=== PATIENT | male | born 1945 | race Caucasian/White ===

== ENCOUNTER 2018-11-19 08:00 | Inpatient (IN) | payer MEDICARE, BC ==
[~2018-11-19] VITALS: Ht 182.9 cm; Wt 87.7 kg
--- NOTE | ~2018-11-19 | HEMODYNAMI ---
PATIENT:AMY RODRIGUEZ MEDICAL RECORD: [id number] : 47 [id number] ADMISSION DATE: 11/19/18 Generatedon:11/19/201813:34 Patient name: AMY RODRIGUEZ Patient #: [id number] SSN: : 1945 Date of study: 11/19/2018 Page: Of Hemodynamic Procedure Report Patient Data Patient Demographics Procedure consent was obtained First Name: AMY Gender: Male Last Name: JENNIFER : 1945 Patient #: [id number] Age: 73 year(s) Race: Unknown Additional ID: [id number] Contact details Address: [facility] [address] State: [place] City: [place] Zip code: [address] Past Medical History Allergies: No known allergies Admission Admission Data Admission Date: 11/19/2018 Admission Time: 10:00 Height (in.): 72 BSA: 2.18 (m2) Height (cm.): 182.88 BMI: 28.48 (kg/m2) Weight (lbs.): 210 Weight (kg.): 95.25 Procedure Procedure Types Cath Procedure Peripheral Cath Diagnostic Procedure Mobile Homes Repairer Peripheral Procedures Fistula Fistulagram Angio AV Procedure Description Procedure Date Procedure Date: 11/19/2018 Procedure Start Time: 10:33 Procedure Staff Name Function Shakeel Mckay MD Performing Physician Katelyn Langford RT Pack Press Operator Naye Gustafson RN Nurse Yuan Jacobsen RT Scrub Procedure Data Cath Procedure Fluoroscopy Diagnostic fluoroscopy Total fluoroscopy Time: 25 time: 25 min min Diagnostic fluoroscopy Total fluoroscopy dose: 248 dose: 248 mGy mGy Contrast Material Contrast Material Type Amount (ml) Isovue 300 180 Procedure Medications Medication Administration Route Dosage Versed I.V. 2 mg Fentanyl I.V. 50 mcg Oxygen etCO2 Nasal cannula 4 l/min Lidocaine 1% added to field 20 Heparin Flush Bag added to field 2 bags (1000units/500ml NS) Heparin Bolus I.V. 5000 units unlisted medication added to field 10 mg Fentanyl I.V. 50 mcg Heparin Bolus I.V. 2000 units Versed I.V. 2 mg Fentanyl I.V. 50 mcg Heparin Bolus I.V. 2000 units Fentanyl I.V. 50 mcg Hemodynamics Rest BSA: 2.18 (m2) O2 Consumption: Estimated: 242.07 (ml/min) O2 Consumption indexed : Estimated:111.04 (ml/min/m) Heart Rate: 58 (bpm) Snapshots Pre Cath Intra NCS Post Cath Vital Signs Time Heart Resp SPO2 etCO2 NIBP (mmHg) Rhythm Pain Sedation Rate (ipm) (%) (mmHg) Status Level (bpm) 10:08:21 58 8 100 38.8 158/79(100) SB 0 (11) 10(A) , No pain 10:12:47 56 11 100 35 157/81(103) SB 0 (11) 10(A) , No pain 10:17:09 56 11 99 35.8 150/78(95) SB 0 (11) 10(A) , No pain 10:22:08 57 10 98 37.3 Measuring SB 0 (11) 10(A) , No pain 10:22:18 55 10 98 37.3 153/75(109) SB 0 (11) 10(A) , No pain 10:26:34 57 13 100 38 152/83(104) SB 0 (11) 10(A) , No pain 10:30:58 58 11 100 35.8 159/80(101) SB 0 (11) 10(A) , No pain 10:35:21 57 7 98 18.6 131/75(95) SB 0 (11) 8(A) , No pain 10:39:39 57 10 98 43.3 145/77(95) SB 0 (11) 8(A) , No pain 10:44:01 58 10 98 42.5 139/71(99) SB 0 (11) 8(A) , No pain 10:48:25 60 12 100 38 132/74(102) NSR 0 (11) 8(A) , No pain 10:52:43 64 11 100 23.8 137/76(109) NSR 0 (11) 8(A) , No pain 10:57:01 58 10 100 0 132/74(105) SB 0 (11) 8(A) , No pain 11:01:21 58 11 100 39.5 131/75(103) SB 0 (11) 8(A) , No pain 11:05:42 58 10 100 41 135/71(115) SB 0 (11) 8(A) , No pain 11:09:58 63 11 100 34.3 135/79(99) NSR 0 (11) 8(A) , No pain 11:14:16 58 10 100 39.5 143/76(101) SB 0 (11) 8(A) , No pain 11:18:40 57 10 100 41.8 142/75(106) SB 0 (11) 8(A) , No pain 11:23:02 57 10 99 29.1 134/73(105) SB 0 (11) 8(A) , No pain 11:27:16 59 10 99 31.3 143/82(111) SB 0 (11) 8(A) , No pain 11:31:36 57 10 100 39.5 136/71(105) SB 0 (11) 8(A) , No pain 11:35:54 54 11 100 19.4 131/73(98) SB 0 (11) 8(A) , No pain 11:40:11 55 13 100 17.9 144/77(104) SB 0 (11) 8(A) , No pain 11:44:29 58 13 100 29.8 146/78(108) SB 0 (11) 8(A) , No pain 11:48:47 57 11 99 37.2 144/80(100) SB 0 (11) 8(A) , No pain 11:53:09 55 9 99 36.5 151/77(95) SB 0 (11) 8(A) , No pain 11:57:39 60 10 99 38 142/56(67) NSR 0 (11) 8(A) , No pain 12:02:34 59 9 100 0 147/82(115) SB 0 (11) 8(A) , No pain 12:07:00 57 10 100 0 151/76(92) SB 0 (11) 8(A) , No pain 12:11:27 56 10 100 15.6 140/77(98) SB 0 (11) 8(A) , No pain 12:15:51 57 10 100 41 135/75(99) SB 0 (11) 8(A) , No pain 12:20:09 56 13 100 41 135/73(103) SB 0 (11) 8(A) , No pain 12:24:27 56 11 100 35.8 142/80(98) SB 0 (11) 8(A) , No pain 12:28:53 54 15 100 35 137/78(113) SB 0 (11) 8(A) , No pain 12:33:17 55 9 100 38 137/78(96) SB 0 (11) 8(A) , No pain 12:37:46 55 11 100 35 148/73(100) SB 0 (11) 8(A) , No pain 12:42:10 54 12 100 35.8 145/75(92) SB 0 (11) 8(A) , No pain 12:46:36 55 15 100 26.1 142/76(95) SB 0 (11) 8(A) , No pain 12:51:05 56 15 100 0 146/77(90) SB 0 (11) 8(A) , No pain 12:55:33 54 12 99 39.5 148/77(100) SB 0 (11) 8(A) , No pain 12:59:59 55 13 99 35.8 153/77(100) SB 0 (11) 8(A) , No pain 13:04:24 55 10 99 15.6 164/82(107) SB 0 (11) 8(A) , No pain 13:08:46 55 9 97 26.1 146/81(98) SB 0 (11) 8(A) , No pain 13:13:45 58 17 98 43.3 Measuring SB 0 (11) 8(A) , No pain 13:14:18 58 14 98 37.3 153/81(101) SB 0 (11) 8(A) , No pain 13:18:44 58 14 100 41 150/84(102) SB 0 (11) 8(A) , No pain 13:23:43 56 9 0 Measuring SB 0 (11) 8(A) , No pain 13:24:18 69 11 0 165/78(96) SB 0 (11) 8(A) , No pain 13:28:46 56 12 0 177/88(111) SB 0 (11) 8(A) , No pain 13:33:25 55 11 0 155/81(133) SB 0 (11) 8(A) , No pain Medications Time Medication Route Dose Verified Delivered Reason Notes Effectiveness by by 10:33:57 Versed I.V. 2 mg Shakeel Armasine for sedation Mostly Sj Mckay RN sleeping @ MD 10:37:05 10:34:07 Fentanyl I.V. 50 Shakeel Naye for sedation Mostly mcg Sj Mckay RN sleeping @ MD 10:37:09 10:34:22 Oxygen etCO2 4 Shakeel Naye for sedation Nasal l/min Sj Mckay RN cannula 10:36:10 Lidocaine 1% added 20ml Shakeel Yancey used for to vial Sj Mckay RN procedure field AVILES 10:36:24 Heparin Flush added 2 Shakeel Shakeel used for Bag to bags Woody Mckay MD procedure (1000units/500ml field AVILES NS) 10:43:33 Heparin Bolus I.V. 5000 Shakeel Yancey for units Sj Mckay RN anticoagulation 10:54:02 activase added 10 mg Shakeel Beckford for to Woody Mckay MD antiplatelet field AVILES therapy 11:42:51 Fentanyl I.V. 50 Shakeel Naye for sedation Mostly mcg Sj Mckay RN sleeping @ MD 11:55:50 11:50:59 Heparin Bolus I.V. 2000 Shakeel Armasine for units Sj Mckay RN anticoagulation 11:52:17 Versed I.V. 2 mg Shakeel Naye for sedation Mostly Sj Mckay RN sleeping @ MD 11:55:54 12:40:10 Fentanyl I.V. 50 Shakeel Naye for sedation Mostly mcg Sj Mckay RN sleeping @ MD 12:51:22 13:06:28 Heparin Bolus I.V. 2000 Shakeel Armasine for units Sj Mckay RN anticoagulation 13:06:40 Fentanyl I.V. 50 Shakeel Naye for sedation mcg Sj Mkcay RN, MD Procedure Log Time Note 9:45:17 Patient Height : 72 inches 9:45:21 Patient Weight : 210 lbs 9:45:46 Use device set IR Diagnostic 9:50:30 Time tracking: Regular hours (M-F 7:00 - 5:00) 10:06:46 Plan of Care:Hemodynamics will remain stable., Cardiac rhythm will remain stable., Comfort level will be maintained., Respiratory function will remain adequate., Patient/ family verbilizes understanding of procedure., Procedure tolerated without complication., Recovers from procedure without complications.. 10:06:53 Patient received from Outpatients to IR Alert and oriented. Tansferred to table in Supine position. 10:06:55 Correct patient and procedure confirmed by team. 10:06:57 Signed procedure consent form obtained from patient. 10:06:59 ECG and BP/O2 sat monitors applied to patient. 10:07:00 Vital chart was started 10:07:01 Baseline sample Acquired. 10:07:02 Full Disclosure recording started 10:07:03 - 10:07:10 H&P Date Dictated: 11/19/2018 Within 30 days and on chart.. 10:07:13 Pre-procedure instructions explained to patient. 10:07:14 Pre-op teaching completed and patient verbalized understanding. 10:07:20 Family in patients room. 10:07:23 Patient NPO since Midnight. 10:07:32 Patient allergic to No known allergies 10:07:35 Is the patient allergic to Iodine/contrast media? No. 10:07:39 Is patient on blood thinner?No 10:07:46 Patient diabetic? Yes. 10:07:49 If diabetic: On Metformin? No 10:07:51 - 10:07:53 ----Pre-sedation anethsthesia assessment.---- 10:07:57 Previous problem with sedation/anesthesia? No ? 10:07:59 Snore? Yes 10:08:04 Sleep apnea? No 10:08:07 Deviated septum? No 10:08:09 Opens mouth fully? Yes 10:08:11 Sticks out tongue? Yes 10:08:20 Airway obstruction? No ? 10:08:30 Dentures? No ? 10:08:33 - 10:08:42 IV patent on arrival in right hand with D5/.45%NaCl at KVO. 10:08:49 Left Arm area was prepped with chlora-prep and draped in sterile fashio n 10:08:55 - 10:08:59 Tegaderm 4 x 4 (1626W) opened to sterile field. 10:09:00 Sterile Angiographic Pack opened to sterile field. 10:09:01 Bag Decanter (2002S) opened to sterile field. 10:09:37 DOC .035 wire (F63884) opened to sterile field. 10:09:38 Micropuncture VSI 4FR kit opened to sterile field. 10:09:39 St Ilir 6FR 5cm sheath opened to sterile field. 10:09:39 St Ilir 6FR 5cm sheath opened to sterile field. 10:22:42 GLIDE CATHETER 5FR ANGLED 65cm (CG507) opened to sterile field. 10:29:38 Physician arrived 10:32:49 --------ALL STOP TIME OUT------ 10:32:50 Final Timeout: patient, procedure, and site verified with staff and physician. All members of the team are in agreement. 10:33:08 Procedure started. 10:33:14 Local anesthetic to left arm with Lidocaine 1% by Shakeel Mckay MD.INITIAL ACCESS ONLY 10:33:17 Venous access obtained using ultrasound guidance. 10:33:57 Versed 2 mg I.V. was administered by Naye Gustafson RN; for sedation; 10:34:07 Fentanyl 50 mcg I.V. was administered by Naye Sj RN; for sedation; 10:34:22 Oxygen 4 l/min etCO2 Nasal cannula was administered by Naye Gustafson RN; for sedation; 10:36:10 Lidocaine 1% 20ml vial added to field was administered by Naye Gustafson RN; used for procedure; 10:36:24 Heparin Flush Bag (1000units/500ml NS) 2 bags added to field was administered by Shakeel Mckay MD; used for procedure; 10:37:05 Effectiveness of Versed delivered @ 10:33:57 is: Mostly sleeping 10:37:09 Effectiveness of Fentanyl delivered @ 10:34:07 is: Mostly sleeping 10:40:18 TORQUE DEVICE PLASTIC .038 ( TD01) opened to sterile field. 10:43:28 GLIDE WIRE ANGLE 180cm (NL2416) opened to sterile field. 10:43:33 Heparin Bolus 5000 units I.V. was administered by Naye Gustafson RN; for anticoagulation; 10:43:39 INFUSION CATHETER 30cm [facility] ([id number]) opened to sterile field . 10:43:49 MIR 260 wire ([id number]) opened to sterile field. 10:43:59 INFLATOR BasixTOUCH (WJ9317) opened to sterile field. 10:44:43 Inflate balloon Inflation number: 1 A Evercross 6 x 8 x 135 Balloon ([id number]) was prepped and advanced across the Undefined1, then inflated. 10:54:02 activase 10 mg added to field was administered by Shakeel Mckay MD; for antiplatelet therapy; 11:42:51 Fentanyl 50 mcg I.V. was administered by Naye Gustafson RN; for sedation; 11:50:59 Heparin Bolus 2000 units I.V. was administered by Naye Gustafson RN; for anticoagulation; 11:52:17 Versed 2 mg I.V. was administered by Naye Gustafson RN; for sedation; 11:55:37 Inflate balloon Inflation number: 2 A Evercross 8 x 6 x 135 Balloon ([id number]) was prepped and advanced across the Undefined1, then inflated. 11:55:50 Effectiveness of Fentanyl delivered @ 11:42:51 is: Mostly sleeping 11:55:54 Effectiveness of Versed delivered @ 11:52:17 is: Mostly sleeping 12:03:28 Inflate balloon Inflation number: 3 A Evercross 6 x 8 x 135 Balloon ([id number]) was prepped and advanced across the Undefined1, then inflated. 12:18:42 María 5Fr OTW embolectomy catheter opened to sterile field. 12:28:46 Inflate balloon Inflation number: 4 A Evercross 10 x 40 x 135 Balloon ([id number])) was prepped and advanced across the Undefined1, then inflated. 12:40:10 Fentanyl 50 mcg I.V. was administered by Naye Gustafson RN; for sedation; 12:42:38 Inflate balloon Inflation number: 5 A Evercross 10 x 40 x 135 Balloon ([id number]) was prepped and advanced across the Undefined1, then inflated. 12:51:22 Effectiveness of Fentanyl delivered @ 12:40:10 is: Mostly sleeping 12:51:42 EVERFLEX 8 x 60 Stent ([id number]) was deployed across Undefined1 . 13:03:54 St Ilir 7FR sheath opened to sterile field. 13:06:28 Heparin Bolus 2000 units I.V. was administered by Naye Gustafson RN; for anticoagulation; 13:06:40 Fentanyl 50 mcg I.V. was administered by Naye Gustafson RN; for sedation; 13:24:41 Procedure ended.(Physican Out) 13:24:54 Fluoroscopy time 25.00 minutes. 13:24:59 Fluoroscopy dose: 248 mGy 13:24:59 Flurop Dose total: 248 13:25:05 Contrast amount:Isovue 300 180ml. 13:25:07 Procedure and supply charges have been captured, reviewed, submitted an d are correct. 13:27:20 Report given to Outpatients. 13:34:25 Vital chart was stopped Intervention Summary Intervention Notes Time ActionType Lesion and Equipment Used Action# Pressure Duration Attributes 10:44:43 Inflate Undefined1 Evercross 6 x 8 1 0 00:00 balloon x 135 Balloon ([id number]) 11:55:37 Inflate Undefined1 Evercross 8 x 6 2 0 00:00 balloon x 135 Balloon ([id number]) 12:03:28 Inflate Undefined1 Evercross 6 x 8 3 0 00:00 balloon x 135 Balloon ([id number]) 12:28:46 Inflate Undefined1 Evercross 10 x 4 0 00:00 balloon 40 x 135 Balloon ([id number]) 12:42:38 Inflate Undefined1 Evercross 10 x 5 0 00:00 balloon 40 x 135 Balloon ([id number]) 12:51:42 Deploy self Undefined1 EVERFLEX 8 x 60 1 expanding Stent stent ([id number]) Device Usage Item Name Manufacture Quantity Catalog Number [facility] Lot# / Charge Number Stock Stock Serial# Code Tegaderm 4 x 4 3M 1 1626W [id number] 557702 843073 5 (1626W) Sterile Cardinal 1 [id number] 521034 966540 5 Angiographic Health Pack Bag Decanter Microtek 1 668182 65126 120277 5 () Faculte Inc. DOC .035 wire Cook Medical 1 M38088 603032 342536 5 (P15000) Micropuncture VSI VASCULAR 1 7266V 430000 707242 5 VSI 4FR kit SOLUTIONS [address] Ilir 6FR 5[address] St Ilir 2 966555 847138 563379 5 [id number] sheath [id number] GLIDE CATHETER Terumo 1 CG507 416111 164309 5 5FR ANGLED 65cm (CG507) TORQUE DEVICE [place]ille 1 TD01 326958 043063 290734 5 PLASTIC .038 ( Scientific TD01) GLIDE WIRE Terumo 1 YH4290 613073 146465 922233 5 ANGLE 180cm (OQ6968) INFUSION Medtronic 1 48015-76 636379 557823 5 CATHETER 30cm Cuate-Tammy (3228734) MIR 260 wire Cook Medical 1 O77829 173762 12268 770636 5 4891704 (H76664) INFLATOR Merit 1 OK9737 993482 357821 301565 5 FanChatter Medical (PB2382) Evercross 6 x 8 Medtronic 2 [id number] 633590 264268 802943 5 [id number] x 135 Balloon [id number] ([id number]) Evercross 8 x 6 Medtronic 1 [id number] 251578 690393 276142 5 [id number] x 135 Balloon ([id number]) María 5Fr OTW Jaimes 1 [id number] 006624 906622 435308 5 embolectomy Lifesciences catheter Evercross 10 x Medtronic 2 [id number] 849994 576150 383739 5 [id number] 40 x 135 [id number] Balloon ([id number]) EVERFLEX 8 x 60 Medtronic 1 [id number] 853516 945636 365683 5 [id number] Stent [id number] ([id number]) St Ilir 7FR St Ilir 1 624516 929286 884276 5 [id number] sheath Signature Audit [place] Stage Time Signature Unsigned Intra-Procedure 11/19/2018 Katelyn Langford 1:34:21 PM RT(R) [place] [id number] [place] [id number]
[2018-11-19 07:47] LABS: BASOPHILS 0.2 % (0-2); EOSINOPHILS 0.5 % (0-7); HEMATOCRIT 32.1 % (42.0-54.0); HEMOGLOBIN 10.7 g/dL (13.5-17.5); IMMATURE GRANULOCYTES 0.5 % (0-5); LYMPHOCYTES 32.1 % (15-50); MCH 32.1 pg (26.0-34.0); MCHC 33.3 g/dL (31.0-37.0); MCV 96.4 fL (80.0-100.0); MEAN PLATELET VOLUME 9.1 fL (7.4-10.4); MONOCYTES 6.6 % (2-11); NEUTROPHILS 60.1 % (40-80); PLATELET COUNT 117 10x3/uL (130-400); RBC 3.33 10x6/uL (4.20-6.10); RDW 14.3 % (11.5-14.5); WBC 6.4 10x3/uL (4.8-10.8)
[2018-11-19 07:52] LABS: ANION GAP 16.1 mmol/L (8-16); CALCIUM 8.4 mg/dL (8.5-10.1); CARBON DIOXIDE 25.5 mmol/L (21.0-32.0); CREATININE - SERUM 6.6 mg/dL (0.6-1.3); POTASSIUM - SERUM 4.6 mmol/L (3.5-5.1)
[2018-11-19] MEDS ORDERED: FLOMAX0.4 MG PO (08:14)
[2018-11-19] MEDS ORDERED: COREG 3.1253.125 MG PO (08:14)
[2018-11-19] MEDS ORDERED: PROZAC40 MG PO (08:15)
[2018-11-19] MEDS ORDERED: LANTUS SOLOSTAR SQ (08:17)
[2018-11-19] MEDS ORDERED: ZOCOR20 MG PO (08:18)
[2018-11-19] MEDS ORDERED: ROPINIROLE HCL2 MG PO (08:18)
[2018-11-19] MEDS ORDERED: PROTONIX40 MG PO (08:19)
[2018-11-19] MEDS ORDERED: DEPAKENE250 MG PO (08:19)
[2018-11-19] MEDS ORDERED: SYNTHROID50 MCG PO (08:19)
[2018-11-19] MEDS ORDERED: FERRIC CITRATE210 MG PO (08:20)
[2018-11-19] MEDS ORDERED: HUMALOG 30100 UNITS/ SC (08:22)
[2018-11-19 08:30] LABS: APTT 32.9 SECONDS (22.8-39.4); BILIRUBIN - TOTAL 0.42 mg/dL (0.2-1.3); INR 1.07 (0.85-1.17); PROTEIN - SERUM 6.9 g/dL (6.4-8.2); PROTIME 13.4 SECONDS (11.6-15.0)
[2018-11-19 08:31] VITALS: BMI 28.5
--- NOTE | 2018-11-19 14:00 | NUR ---
REC'D FROM SPECIALS. FAMILY AT BEDSIDE. ASSISTED TO BATHROOM AND VOIDED WITHOUT DIFFICULTY. LEFT AVF OOZING BLOOD. DAVE REDRESSED SITE AND APPLIED COBAN. PT WILL BE TRANSFERRED TO [facility] ROOM 2126.
--- NOTE | 2018-11-19 14:33 | NUR ---
REPORT CALLED TO Shiva DAVIDSON RN. TRANSFERRING TO ROOM 2127 VIA STRETCHER. FAMILY AT BEDSIDE.
--- NOTE | 2018-11-19 14:56 | NUR ---
1435-RECEIVED REPORT FROM VAHE IN OUTPATIENT.
--- NOTE | 2018-11-19 15:16 | NUR ---
RECEIVED TO ROOM FROM IR. DING DRESSING REMOVED PER DAVE HOUESR. 2 SEPERATE SURGICAL DRESSINGS SEEN WITH OLD BLODDY DRAINAGE. RIGHT FA SEEN WITH PIV. AT BEDSIDE. HELD NPO UNTIL FURTHER ORDERS.
--- NOTE | 2018-11-19 15:22 | NUR ---
I CALLED MEHDI AQUINO APN FOR FURTHER ORDERS. SHE STATES THAT DR BURGESS WAS CONSULTED, UNSURE IF HE WAS CALLED. PAGE INTO HIM. AWAITING CALL BACK.
[2018-11-19 15:27] VITALS: BP 148/74; BMI 28.5
--- NOTE | 2018-11-19 16:00 | NUR ---
PPOC GLUCOSE IS 60, STILL NPO AT THIS TIME. ONE CONTAINER OF APPLE JUICE WITH ONE PACKET OF REAL SUGAR GIVEN FOR COVERAGE. STILL AWAITING CALL BACK.
[2018-11-19 16:43] VITALS: BP 143/73
--- NOTE | 2018-11-19 17:09 | NUR ---
STILL NPO AWAITING DR BURGESS TO PLACED TRIALYSIS AT BEDSIDE. PERMITS ARE SIGNED.
--- NOTE | 2018-11-19 18:31 | NUR ---
1800-DR BURGESS HERE FOR TRIALYSIS PLACEMENT.
--- NOTE | 2018-11-19 18:39 | NUR ---
SPOKE WITH CHELSEA AQUINO APN FOR PAIN MEDICATIONS.
--- NOTE | 2018-11-19 19:30 | NUR ---
RESUMING PATIENT CARE. PATIENT IS ALERT AND ORIENTED, RESTING COMFORTABLY IN BED. RESPIRATIONS ARE EVEN AND UNLABORED. NO S/S OF DISTRESS. NO C/O PAIN. CALL LIGHT WITHIN REACH. WILL CPOC.
[2018-11-19 20:00] VITALS: BP 169/86
[2018-11-20] VITALS: BP 152/74
[2018-11-20 04:00] VITALS: BP 150/71
[2018-11-20 06:07] LABS: BASOPHILS 0.2 % (0-2); EOSINOPHILS 1.3 % (0-7); HEMATOCRIT 29.3 % (42.0-54.0); HEMOGLOBIN 9.6 g/dL (13.5-17.5); IMMATURE GRANULOCYTES 0.2 % (0-5); MCH 31.9 pg (26.0-34.0); MCHC 32.8 g/dL (31.0-37.0); MCV 97.3 fL (80.0-100.0); MEAN PLATELET VOLUME 9.5 fL (7.4-10.4); MONOCYTES 11.6 % (2-11); NEUTROPHILS 62.7 % (40-80); PLATELET COUNT 112 10x3/uL (130-400); RBC 3.01 10x6/uL (4.20-6.10); RDW 14.2 % (11.5-14.5); WBC 5.4 10x3/uL (4.8-10.8)
[2018-11-20 06:33] LABS: ANION GAP 16.4 mmol/L (8-16); CALCIUM 8.1 mg/dL (8.5-10.1); CARBON DIOXIDE 23.8 mmol/L (21.0-32.0); CREATININE - SERUM 6.8 mg/dL (0.6-1.3); POTASSIUM - SERUM 5.2 mmol/L (3.5-5.1)
[2018-11-20 07:00] VITALS: BP 144/72
--- NOTE | 2018-11-20 07:15 | NUR ---
REPORT RECIEVED FROM MORTAR MAKER. PATIENT LAYING IN BED ON BACK AWAKE AND ALERT. AT BEDSIDE. PATIENT DENIES ANY NEEDS OR PAIN. WILL CONTINUE WITH PLAN OF CARE.
[2018-11-20 10:57] VITALS: Ht 182.9 cm; Wt 87.7 kg
[2018-11-20 15:00] VITALS: BP 127/66
--- NOTE | 2018-11-20 20:00 | NUR ---
INITIAL ROUNDS AND ASSESSMENT COMPLETED. PT HAS BEEN AMBULATORY IN HALLWAY. VOICING NO PAIN OR DISCOMFORT. RIGHT JUGULAR TRIALYSIS WITH DRESSING C/D/I. NONLABORD RESPIRATIONS ON ROOM AIR. AT BEDSIDE. MONITOR AND CPOC.
[2018-11-20 20:25] VITALS: BP 114/75
[2018-11-21 00:30] VITALS: BP 120/56
--- NOTE | 2018-11-21 02:33 | NUR ---
MEDICATED WITH ULTRAM FOR NECK PAIN. AT BEDSIDE.
[2018-11-21 04:45] VITALS: BP 143/74
--- NOTE | 2018-11-21 07:15 | NUR ---
REPORT RECIEVED AND MORNING ROUNDING COMPLETE. PT LAYING IN BED EYES CLOSED. BREATHING EVEN AND UNLABORED. AT BEDSIDE. CALL LIGHT WITHIN REACH AND BED IN LOWEST POSITION.
[2018-11-21 08:25] VITALS: BP 139/92
--- NOTE | 2018-11-21 09:58 | NUR ---
UP IN CHAIR WITH CALL LIGHT IN REACH. AT BS. WILL MONITOR NEEDS.
[2018-11-21 11:38] VITALS: BP 119/66
[2018-11-21 16:28] VITALS: BP 126/74
--- NOTE | 2018-11-21 19:38 | NUR ---
PT IS RESTING IN BED WITH EYES OPEN. ALERT AND ORIENTED X 3. DENIES ACUTE DISCOMFORT AT THIS TIME. RIGHT IJ AND RIGHT FA SL NOTED. LEFT ARM FISTULA IS CLOTTED. SR'S ARE UP X 3 IN BED. CALL LIGHT AND BEDSIDE TABLE ARE IN EASY REACH.
[2018-11-21 21:20] VITALS: BP 132/78
--- NOTE | 2018-11-21 21:47 | NUR ---
PT RESTING IN BED WITH EYES OPEN. SNORING SOFTLY.
--- NOTE | 2018-11-22 00:22 | NUR ---
PT RESTING IN BED WITH EYES CLOSED.
[2018-11-22 00:57] VITALS: BP 150/60
--- NOTE | 2018-11-22 03:15 | NUR ---
RESTING IN BED WITH NO DISTRESS. RESPS EVEN/NONLABORED. CALL LIGHT IN REACH. MONITOR AND CPOC.
[2018-11-22 05:53] VITALS: BP 181/79
--- NOTE | 2018-11-22 06:12 | NUR ---
PT RESTING IN BED WITH EYES OPEN. ANXIOUS TO GO TO SURGERY TODAY. NO NEEDS VOICED.
--- NOTE | 2018-11-22 07:35 | NUR ---
ASSESSMENT COMPLETEDALERT AND ORIENTED. RPT HAS A RIGHT IJ AND A RIGHT FA SL. LEFT AVF CLOTTED. NPO FOR SURGERY. UP AB RAMY. SR UP WITH CALL LIGHT IN REACH
[2018-11-22 08:41] VITALS: BP 154/84
[2018-11-22 11:18] LABS: BASOPHILS 0.4 % (0-2); EOSINOPHILS 2.2 % (0-7); HEMATOCRIT 29.1 % (42.0-54.0); HEMOGLOBIN 9.7 g/dL (13.5-17.5); IMMATURE GRANULOCYTES 0.7 % (0-5); MCH 31.8 pg (26.0-34.0); MCHC 33.3 g/dL (31.0-37.0); MCV 95.4 fL (80.0-100.0); MEAN PLATELET VOLUME 9.4 fL (7.4-10.4); MONOCYTES 11.1 % (2-11); NEUTROPHILS 50.6 % (40-80); PLATELET COUNT 103 10x3/uL (130-400); RBC 3.05 10x6/uL (4.20-6.10); RDW 14.1 % (11.5-14.5); WBC 5.5 10x3/uL (4.8-10.8)
--- NOTE | 2018-11-22 11:24 | NUR ---
RESTING QUIETLY NAD NOTED
[2018-11-22 11:26] LABS: ANION GAP 15.5 mmol/L (8-16); CALCIUM 8.2 mg/dL (8.5-10.1); CARBON DIOXIDE 26.1 mmol/L (21.0-32.0); CREATININE - SERUM 6.6 mg/dL (0.6-1.3); POTASSIUM - SERUM 4.6 mmol/L (3.5-5.1)
--- NOTE | 2018-11-22 18:33 | NUR ---
BACK FROM SURGERY. ALERT AND ORIENTED. V/S STABLE. HEMISPLIT TO RIGHT CHEST WITH SOME BLEEDING. PRESSURE DRSG TO AREA. NO NEEDS VOICED. WILL MONITOR
--- NOTE | 2018-11-22 19:57 | NUR ---
RESUMED CARE OF PT, LYING IN BED RESPIRATIONS EVEN AND UNLABORED ON ROOM AIR. RIGHT CHEST HEMOSPLIT OOZING, REDRESSED DRESSING, LAYING SUPINE AND ICE PACK APPLIED. AT BEDSIDE, CALL LIGHT IN REACH. WILL CONTINUE TO MONITOR. SEE NURSE ASSESSMENT.
[2018-11-22 20:56] VITALS: BP 165/73
--- NOTE | 2018-11-22 23:21 | NUR ---
UP TO TOILET, HEMOSPLIT STILL OOZING. PRESSURE DRESSING APPLIED, SANDBAG PLACED TO RIGHT CHEST.
--- NOTE | 2018-11-22 23:26 | NUR ---
VETERINARY X RAY OPERATOR AT BEDSIDE TO OBTAIN VITALS, CALL LIGHT IN REACH. WILL CONTINUE WITH PLAN OF CARE.
[2018-11-23 02:02] VITALS: BP 156/72
[2018-11-23 06:04] LABS: BASOPHILS 0.4 % (0-2); EOSINOPHILS 2.2 % (0-7); HEMATOCRIT 27.2 % (42.0-54.0); IMMATURE GRANULOCYTES 0.5 % (0-5); MCH 31.8 pg (26.0-34.0); MCHC 33.1 g/dL (31.0-37.0); MCV 96.1 fL (80.0-100.0); MEAN PLATELET VOLUME 9.3 fL (7.4-10.4); MONOCYTES 11.3 % (2-11); NEUTROPHILS 61.6 % (40-80); PLATELET COUNT 88 10x3/uL (130-400); RBC 2.83 10x6/uL (4.20-6.10); RDW 14.2 % (11.5-14.5); WBC 5.5 10x3/uL (4.8-10.8)
[2018-11-23 06:09] VITALS: BP 141/70
[2018-11-23 06:32] LABS: CALCIUM 7.5 mg/dL (8.5-10.1); CARBON DIOXIDE 23.1 mmol/L (21.0-32.0); CREATININE - SERUM 7.2 mg/dL (0.6-1.3); POTASSIUM - SERUM 5.1 mmol/L (3.5-5.1)
--- NOTE | 2018-11-23 07:00 | NUR ---
RECEIVED REPORT. ASSUMED CARE OF PATIENT. RESTING IN BED WITH EYES CLOSED. EASILY AROUSED. PATIENT SPOUSE AT BEDSIDE. PATIENT TO RECIEVE DIALYSIS TODAY. PRESSURE DRESSING NOTED TO RIGHT CHEST DUE TO BLEEDING FROM NEW HEMOSPLIT PLACEMENT. NOC NURSE REPORTED SAND BAG WAS REMOVED AT 0400. NO ACTIVE SIGNS OF BLEEDING AT THIS TIME. PRESSURE DRESSING REMAINS INTACT. CALL LIGHT WITHIN REACH.
[2018-11-23 07:25] LABS: PLATELET ESTIMATE DECREASED
[2018-11-23 07:26] LABS: ANISOCYTOSIS OCC
--- NOTE | 2018-11-23 08:00 | NUR ---
RECEIVED CALL FROM KAREN CONNER APN AND RECIEVED ORDER TO HOLD PLAVIX THIS AM DUE TO PATIENT HAD BLEEDING FROM RIGHT CHEST HEMOSPLIT AND SHE WILL CONTACT DIALYSIS AND LET THEM KNOW NOT TO USE HEPARIN ON PATIENT TODAY.
--- NOTE | 2018-11-23 08:08 | NUR ---
PATIENT SITTING UP TO CHAIR AT BEDSIDE REQUESTING PRESSURE DRESSING REMOVED. EXPLAINED THE NEED FOR THE DRESSING AND PATIENT AND HIS AGREE TO KEEP PRESSURE DRESSING ON AT THIS TIME. NO DISTRESS.
[2018-11-23 08:24] VITALS: BP 166/93
--- NOTE | 2018-11-23 08:36 | NUR ---
DOPPLER USED TO CHECK BRUIT ON LEFT ARM FISTUAL UNABLE TO AUSCULATE WITH STETHOSCOPE. GOOD BRUIT WITH DOPPLER.
--- NOTE | 2018-11-23 09:21 | NUR ---
FSBS 138. 16 UNITS LANTUS ADMINISTERED ORDERED. NO DISTRESS.
[2018-11-23 11:09] VITALS: BP 154/76
--- NOTE | 2018-11-23 11:37 | NUR ---
FSBS 95. NO INSULIN PER SLIDING SCALE.
--- NOTE | 2018-11-23 12:28 | NUR ---
PATIENT RESTING IN BED. PATIENT AT BEDSIDE. AWAITING DIALYSIS TO CALL FOR PATIENT TO BE TAKEN DOWN FOR TREATMENT.
--- NOTE | 2018-11-23 13:39 | NUR ---
KAREN CONNER APN REMOVED PRESSURE DRESSING FROM RIGHT CHEST HEMESPLIT. NO ACTIVE BLEEDING.
--- NOTE | 2018-11-23 15:00 | NUR ---
PATIENT LEFT UNIT VIA BED FOR DIALYSIS. PATIENT IN NO DISTRESS UPON LEAVING UNIT.
--- NOTE | 2018-11-23 16:36 | NUR ---
CHECKED PATIENTS FSBS IN DIALYSIS AND WAS 51. 2 CONTAINERS OF APPLE JUICE AND ONE PACKAGE OF LASHELL CRACKERS PROVIED. FSBS UP TO 53 AFTER 4 MINUTES. WILL RECHECK FSBS AT 1700.PATEINT ALERT/ORIENTED. DIALYSIS NURSES AT BEDSIDE.
--- NOTE | 2018-11-23 16:44 | OP ---
PATIENT NAME: AMY RODRIGUEZ MEDICAL RECORD: [id number] :47 LOCATION:D.M2 D.7 ADMISSION DATE:11/19/18 SURGEON: HSAQ BURGESS MD DATE OF OPERATION: 11/19/2018 PREOPERATIVE DIAGNOSES: 1. End-stage renal disease without chronic access for hemodialysis. 2. Clotted left brachiocephalic arteriovenous fistula. POSTOPERATIVE DIAGNOSES: 1. End-stage renal disease without chronic access for hemodialysis. 2. Clotted left brachiocephalic arteriovenous fistula. PROCEDURE: Insertion of right internal jugular Trialysis catheter (non-tunneled, non-cuffed hemodialysis catheter). SURGEON: Shaq Burgess MD BAG SHOP WORKER: None. BLOOD LOSS: Minimal. ANESTHESIA: Local. COMPLICATIONS: None. The risks, possible complications, and alternatives to the procedure were explained to the patient. He elects to proceed. The patient was seen at the bedside. He was positioned in the Trendelenburg position. The right neck was interrogated with the ultrasound. The right internal jugular vein was marked on the patient's skin. The right neck and right upper chest were sterilely prepped and draped. Local anesthetic was used to infiltrate the skin and subcutaneous tissues at the base of the right neck. Right internal jugular vein was percutaneously accessed in an antegrade fashion. A guidewire passed easily. A small skin nilda was accomplished. A vessel dilator was used to dilate the subcutaneous tract. A short Trialysis catheter was inserted to the hub. It was sutured in place times 3. All lumens flushed easily and aspirated dark, nonpulsatile blood. A stat portable chest x-ray is pending. The site was sterilely dressed. TRANSINT:[id number] Voice Confirmation ID: [id number] DOCUMENT ID: [id number] SHAQ BURGESS MD at 1644 CC: [id number] DICTATION DATE: 11/19/18 185 RECYCLING ASSISTANT: 11/19/18 215 ADM IN [place] [id number] [place] [id number]
--- NOTE | 2018-11-23 17:12 | NUR ---
RECHECKED FSBS, 124. PATIENT REMAINS IN DIALYSIS AT THIS TIME. NO DISTRESS. AT BEDSIDE CHECKING FISTULA WITH DOPPLER I DID THIS AM.
--- NOTE | 2018-11-23 19:55 | NUR ---
PATIENT RETURNED TO FLOOR FROM DIALYSIS. SPOKE WITH DIALYSIS NURSE ABOUT THE PATIENTS DRESSING. RUDY STATED SHE DID NOT CHANGE THE DRESSING DUE TO THE RISK OF PATIENT BLEEDING. SHE RECOMMENDED TO NOT CHANGE DRESSING UNTIL TOMORROW MORNING.
[2018-11-23 20:40] VITALS: BP 113/76
--- NOTE | 2018-11-24 00:53 | NUR ---
DRESSING ON RIGHT CHEST HEMO SPLIT CHANGED. NEW DRESSING C/D/I. DRESSINGS ON LEFT ARM INCISIONS CHANGED. NEW DRESSING C/D/I.
[2018-11-24 00:56] VITALS: BP 136/72
[2018-11-24 06:09] VITALS: BP 125/69
[2018-11-24 06:19] LABS: ANION GAP 17.4 mmol/L (8-16); CALCIUM 8.4 mg/dL (8.5-10.1); CREATININE - SERUM 5.7 mg/dL (0.6-1.3); POTASSIUM - SERUM 4.4 mmol/L (3.5-5.1)
[2018-11-24 06:20] LABS: BASOPHILS 0.3 % (0-2); EOSINOPHILS 1.5 % (0-7); HEMATOCRIT 30.4 % (42.0-54.0); HEMOGLOBIN 10.1 g/dL (13.5-17.5); IMMATURE GRANULOCYTES 1.1 % (0-5); LYMPHOCYTES 25.4 % (15-50); MCH 32.3 pg (26.0-34.0); MCHC 33.2 g/dL (31.0-37.0); MCV 97.1 fL (80.0-100.0); MEAN PLATELET VOLUME 9.9 fL (7.4-10.4); MONOCYTES 15.2 % (2-11); NEUTROPHILS 56.5 % (40-80); PLATELET COUNT 99 10x3/uL (130-400); RBC 3.13 10x6/uL (4.20-6.10); RDW 14.6 % (11.5-14.5)
[2018-11-24 06:55] LABS: WBC 9.4 10x3/uL (4.8-10.8)
--- NOTE | 2018-11-24 07:15 | NUR ---
REPORT RECIEVED AND MORNING ROUNDING COMPLETE. PT LAYING IN BED, NO NEEDS AT THIS TIME. AT BEDSIDE. ASKING ABOUT DISCHARGE. CALL LIGHT WITHIN REACH AND BED IN LOWEST POSITION.
[2018-11-24 08:38] LABS: PLATELET ESTIMATE DECREASED
[2018-11-24 08:39] LABS: ANISOCYTOSIS OCC; HYPOCHROMASIA OCC
[2018-11-24] MEDS ORDERED: PLAVIX75 MG PO (09:32)
--- NOTE | 2018-11-24 09:45 | NUR ---
PER CHELSEA/KELBY RENAL VIA PHONE NO FOLLOW UP WITH BREVING NEEDED
--- NOTE | 2018-11-24 09:56 | NUR ---
AT BS. LLOYD NEEDS AT THIS TIME. CALL LIGHT IN REACH. WILL MONITOR.
--- NOTE | 2018-11-24 10:13 | MORECARE ---
CASE MANAGEMENT DISCHARGE SUMMARY PATIENT: AMY RODRIGUEZ UNIT: [id number] ADM DATE: 11/19/18 AGE: 73 : 46 SEX: M ROOM/BED: D.2127 AUTHOR: ARIE NICOLE PHYSICIAN: REFERRING PHYSICIAN: REN AGUIRRE MD DATE OF SERVICE: 11/24/18 Discharge Plan Patient Name: AMY RODRIGUEZ Facility: [facility]:[place] : 1945 Planned Disposition: Home Anticipated Discharge Date: 11/24/18 Discharge Date: Expected LOS: 5 Initial Reviewer: [email or web address] Initial Review Date: 11/24/2018 Generated: 11/24/18 11:13 am DCPIA - Discharge Planning Initial Assessment Updated by MANUEL: Stef You on 11/24/18 10:11 am * Is the patient Alert and Oriented? Yes * How many steps to enter\exit or inside your home? * PCP DR. TUSHAR PONCE IN [place] MUSIC TYPOGRAPHER: DR. CLARK * Pharmacy [facility] IN [place] * Preadmission Environment Home with Family * ADLs Independent * Equipment Bedside Commode Cane Walker * Other Equipment [facility] - MEDICAL EQUIPMENT PROVIDER * List name and contact numbers for known caregivers / representatives who currently or will assist patient after discharge: JUD RODRIGUEZ, SPOUSE, * Verbal permission to speak to the caregivers and representatives has been obtained from the patient. Yes * Community resources currently utilized Other * Please name any agencies selected above. OUTPATIENT DIALYSIS, [facility] IN [place], [facility], [address] NO[address], PT DRIVES OR FAMILY TRANSPORTS * Additional services required to return to the preadmission environment? No * Can the patient safely return to the preadmission environment? Yes * Has this patient been hospitalized within the prior 30 days at any hospital? Yes Coverage Notice Reviewer: [id number] - Stef You Notice Issued Date-Time: 11/24/2018 9:35 Notice Type: IM Discharge Notice Notice Delivered To: Patient Relationship to Patient: Sausage Linker Name: Delivery Method: HAND - Hand Delivered Elda Days: Prior Verbal Notification: Recipient Understood Notice: Yes Recipient Signature: Yes Med Rec Note Co-signed by Attending: Coverage Notice Comment: Patient Name: AMY RODRIGUEZ Page [id number] at 1013 All edits/amendments must be made on the electronic document DICTATION DATE: 11/24/18 1013 DRAW END HAND: SULEMA 11/24/18 1013 RPT#: [id number] DC DATE: STATUS: ADM IN [facility] [address] [place] [address] END OF REPORT
--- NOTE | 2018-11-24 10:21 | MORECARE ---
CASE MANAGEMENT DISCHARGE SUMMARY PATIENT: AMY RODRIGUEZ UNIT: [id number] ADM DATE: 11/19/18 AGE: 73 : 47 SEX: M ROOM/BED: D.6559 AUTHOR: ARIE NICOLE PHYSICIAN: REFERRING PHYSICIAN: REN MARLOW MD DATE OF SERVICE: 11/24/18 Discharge Plan Patient Name: AMY RODRIGUEZ Facility: [facility]:[place] : 1945 Planned Disposition: Home Anticipated Discharge Date: 11/24/18 Discharge Date: Expected LOS: 5 Initial Reviewer: [email or web address] Initial Review Date: 11/24/2018 Generated: 11/24/18 11:21 am Comments DCP- Discharge Planning Updated by [email or web address]: Stef You on 11/24/18 9:[address] Patient Name: AMY RODRIGUEZ Admission Status: Elective Accout number: [id number] Admission Date: 11-19-2018 : 1945 Admission Diagnosis: Attending: Ren Marlow Current LOS: 5 Anticipated DC Date: 11-24-2018 Planned Disposition: Home Primary Insurance: MEDICARE A & B Discharge Planning Comments: CM MET WITH PT AND SPOUSE IN ROOM TO DISCUSS DISCHARGE PLANNING AND NEEDS. AMY RODRIGUEZ provided verbal consent to discuss current and ongoing needs with/in the presence of: SPOUSE, JUD RODRIGUEZ. PT REPORTS LIVING AT HOME INDEPENDENTLY WITH SPOUSE. PT HAS A CANE AND WALKER THAT HE USES AND BEDSIDE COMMODE OVER HIS TOILET AT HOME. PROVIDER FOR MEDICAL EQUIPMENT IS [facility]. PT HAS NO OUTSIDE SERVICES ASSISTING IN THE HOME. CM DISCUSSED AVAILABILITY OF HOME HEALTH, REHAB SERVICES AND MEDICAL EQUIPMENT. PT DENIES DISCHARGE NEEDS, PT'S SPOUSE REPORTS TO BE A REGISTERED NURSE. SPOUSE HERE TO TRANSPORT HOME AT DISCHARGE TODAY. IMPORTANT MESSAGE FROM MEDICARE PROVIDED AND EXPLAINED. CALLISTHENICS INSTRUCTOR NURSE NOTIFIED. Concrete Mixing Truck Driver: Stef You DCPIA - Discharge Planning Initial Assessment Updated by [email or web address]: Stef You on 11/24/18 10:11 am * Is the patient Alert and Oriented? Yes * How many steps to enter\exit or inside your home? * PCP DR. TUSHAR PONCE IN [place] CLINICAL RESEARCH NURSE: DR. CLARK * Pharmacy [facility] IN [place] * Preadmission Environment Home with Family * ADLs Independent * Equipment Bedside Commode Cane Walker * Other Equipment [facility] - MEDICAL EQUIPMENT PROVIDER * List name and contact numbers for known caregivers / representatives who currently or will assist patient after discharge: JUD RODRIGUEZ, SPOUSE, * Verbal permission to speak to the caregivers and representatives has been obtained from the patient. Yes * Community resources currently utilized Other * Please name any agencies selected above. OUTPATIENT DIALYSIS, [facility] IN [place], [facility], [address] NO[address], PT DRIVES OR FAMILY TRANSPORTS * Additional services required to return to the preadmission environment? No * Can the patient safely return to the preadmission environment? Yes * Has this patient been hospitalized within the prior 30 days at any hospital? Yes Coverage Notice Reviewer: [id number] Juice You Notice Issued Date-Time: 11/24/2018 9:35 Notice Type: IM Discharge Notice Notice Delivered To: Patient Relationship to Patient: Bruise Trimmer Name: Delivery Method: HAND - Hand Delivered Elda Days: Prior Verbal Notification: Recipient Understood Notice: Yes Recipient Signature: Yes Med Rec Note Co-signed by Attending: Coverage Notice Comment: Last DP export: 11/24/18 9:13 am Patient Name: AMY RODRIGUEZ Page [phone] at 1021 All edits/amendments must be made on the electronic document DICTATION DATE: 11/24/18 1021 POWER SHEAR OPERATOR: SULEMA 11/24/18 1021 RPT#: [id number] DC DATE: STATUS: ADM IN [facility] [address] [place] [address] END OF REPORT
--- NOTE | 2018-11-24 10:37 | NUR ---
PT DISCHARGED. STATES NOT TO GIVE MEDS THIS AM HE CAN TAKE THEM AT HOME. PT AND WIE STATE THEY UNDERSTAND THE DISCHARGE INSTRUCTIONS. PT SIGNED PAPERWORK. REMOVED PT'S PIV FROM RIGHT FOREARM NO BLEEDIFN NOTED HELD PRESSURE FOR 5 MIN. PT WAS TAKEN DOWN BY VOLUNTEER VIA WHEELCHAIR.
--- NOTE | 2018-11-25 10:55 | OP ---
PATIENT NAME: AMY RODRIGUEZ MEDICAL RECORD: [id number] :[birth year] LOCATION:D.M2 D.2127 ADMISSION DATE:11/19/18 SURGEON: TARYN BURGESS MD DATE OF OPERATION: 11/23/2018 PREOPERATIVE DIAGNOSES: 1. End-stage renal disease without chronic access for hemodialysis. 2. Clotted left upper extremity brachiocephalic fistula. POSTOPERATIVE DIAGNOSES: 1. End-stage renal disease without chronic access for hemodialysis. 2. Clotted left upper extremity brachiocephalic fistula. 3. 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 4. Tenacious occlusive material within the cephalic vein, perhaps representing some fibromuscular hyperplasia that has broken loose from the wall of the fistula. 5. Arterial anastomotic stricture, 80%. PROCEDURES: 1. Endovascular stent placements times 2 (Viabahn 10 x 50 mm stent and Fluency 7 x 60 mm stent). 2. Balloon angioplasty times 2 (intrastent stenosis and arterial anastomotic stricture). 3. Nonselective fistulogram. 4. Selective left brachial arteriogram. 5. AngioJet mechanical thrombolysis of the left brachiocephalic arteriovenous fistula. 6. Catheter thrombectomy of the left brachiocephalic arteriovenous fistula. 7. Right internal jugular HemoSplit catheter placement, 19 cm (tunneled cuffed dual-lumen hemodialysis catheter). 8. Sheath times 2, antegrade 12-South Korean sheath and retrograde 6-South Korean sheath. 9. Immediate surgeon interpretation of all of the fluoroscopic images. SURGEON: Taryn Burgess MD BAND TOP MAKER: None. BLOOD LOSS: Less than 50 cc. ANESTHESIA: General. COMPLICATIONS: None. The risks, possible complications and alternatives to the procedure were explained to the patient. He elects to proceed. The discussion specifically included, but was not limited to, bleeding requiring emergency reoperation, infection, arterial embolism, loss of function of the hand, neuropathy and the possibility that the procedure would not work and we would have to convert it under the same anesthetic to the placement of a left upper extremity graft. No radiologist was present for this procedure. Static fluoroscopic images were obtained as well as cine images. These are kept in the PACS system. The surgeon interpretation of the radiographic images is dictated within the body of this operative note. OPERATIVE REPORT [id number] AMY RODRIGUEZ The patient has a nice left brachiocephalic fistula was placed by Dr. Blanton in [place]. Dr. Mckay of the interventional radiology team worked tirelessly in order to try to get the fistula open. This, however, was not successful. Over the weekend, I placed a Trialysis catheter, so the patient could be dialyzed. He now is to undergo an operative procedure to try to open up the fistula as well as to place a longer term access. We are going to need to let the left upper extremity rest for a while as it is swollen from the endovascular attempts to reopen it. OPERATIVE COURSE: The patient was conveyed to the operating room electively on 11/22/2018. General anesthesia was induced by the anesthesia staff. The left upper extremity was abducted at 90 degrees to the patient's trunk. The left upper extremity, right neck and right chest were sterilely prepped and draped. Under fluoroscopic guidance, I advanced a guidewire down the middle lumen of the Trialysis catheter. The Trialysis catheter was removed. A skin incision was accomplished at the base of the wire. Another skin incision was accomplished in the right anterior superior infraclavicular chest. I tunneled a 19-cm HemoSplit catheter from the chest incision to the neck incision. Over the guidewire, I advanced a dilator sheath under fluoroscopic guidance. The dilator and wire were removed. The tips of the HemoSplit catheter were advanced down through the sheath and the sheath was removed. I then pulled back on the HemoSplit catheter in order to seat the cuff in the subcutaneous tissues. Both lumens flushed easily and aspirated dark, nonpulsatile blood. An image was obtained over the right hemithorax and revealed there was no apparent kinking or twisting of the HemoSplit catheter. No radiographic evidence of complication. The longest tip of the HemoSplit catheter was near the cavoatrial junction. The neck incision was closed with multiple interrupted intracuticular 3-0 Vicryls. The flange of the HemoSplit catheter was sutured to the underlying skin with 2-0 nylons. Both lumens of the HemoSplit catheter were then topped off with the appropriate amount of concentrated heparin. A sterile dressing was applied. Attention was then turned to the left upper extremity. Utilizing a micropuncture technique, I accessed the cephalic vein in an antegrade fashion in the distal arm. A 6-South Korean dilator sheath was advanced. The dilator and wire were removed. The 6-South Korean sheath was then sewn into place. A nonselective fistulogram was performed and this revealed a large burden of thrombus. I advanced a #4 María catheter up the cephalic vein and into the stents. I then performed a partial catheter thrombectomy of this venous outflow. I then advanced an 0.035 Glidewire up through the stent and into the subclavian vein and then the left innominate vein. Over the Glidewire, I advanced an AngioJet mechanical thrombolysis device and performed mechanical thrombectomy of the venous end of the fistula. A followup fistulogram revealed that there was still a significant amount of thrombus and occlusive material within the fistula. An additional catheter thrombectomy with the #4 María was performed as well as another few passes with the AngioJet device. There was still a significant thrombus burden seen on the fistulogram as well as an intrastent stenosis of 90%. It is interesting to note that the last stent actually extends into the subclavian vein, but does not appear to be flow limiting. OPERATIVE REPORT [id number] AMY RODRIGUEZ Over the 0.035 Glidewire, I advanced a 10-mm angioplasty balloon. This was a high pressure balloon. I advanced the balloon to the area of stenosis under a roadmap. I inflated the balloon to 22 atmospheres times 3 minutes. A followup fistulogram revealed really no change in the intrastent stenosis. Therefore, a restenting was indicated. Over the Glidewire, I removed the 6-South Korean sheath and advanced a short 12-South Korean sheath. Through the 12-South Korean sheath, I advanced a 10 mm x 5 cm Viabahn stent and deployed this within the intrastent stenosis. I then removed the deployment device and advanced the 10-mm angioplasty balloon again and inflated it to 22 atmospheres and despite this high atmospheric pressure with the next fistulogram, it revealed there was still stenosis; however, this is only a 30% stenosis and was not flow limiting. On the fistulogram, there was still a significant amount of echogenic material within the fistula, mainly at the upper third of the arm. Several more passes with the #4 María catheter and another fistulogram revealed that this material was still occlusive and I elected to see if it would respond to balloon angioplasty. I advanced an 8 mm angioplasty balloon and performed balloon angioplasties in this area. A followup fistulogram revealed really no change and I believe this likely represents perhaps some thrombus, but more likely some fibromuscular hyperplasia that has broken loose from the almodovar of the fistula and is quite tenacious and is preventing flow to a large degree. I elected to stent this area. I advanced a Fluency stent, which was a 7 mm x 60 mm stent. This was deployed. Post-deployment expansion of the stent was performed with the 8 mm angioplasty balloon. A followup fistulogram revealed good flow without flow-limiting stenoses through the 12-South Korean sheath. I then placed a 6-South Korean sheath in a retrograde fashion. This was a crossed wires type technique. A micropuncture technique was used to place a 6-South Korean sheath, which was placed in the upper third of the arm. I placed the sheath through the Fluency stent. Through this 6-South Korean sheath, I advanced a #4 María catheter and it would not advance all the way into the brachial artery. I performed a partial catheter thrombectomy with this #4 María catheter. An 0.035 Glidewire was advanced. I was able to manipulate the Glidewire into the brachial artery and passed it distally into the radial artery. Over the Glidewire, an AngioJet mechanical thrombolysis device was advanced and I took several passes through the arterial anastomosis into the brachial artery and then back into the fistula performing the mechanical thrombectomy. While occluding the cephalic vein in the upper arm, I performed another fistulogram and this revealed an arterial anastomotic stricture. I advanced a 5-mm angioplasty balloon down through the anastomosis into the brachial artery and performed a balloon angioplasty at 8 atmospheres for 3 minutes. The angioplasty balloon was removed. A subsequent fistulogram through the sheath occluding the cephalic vein near the shoulder revealed that there may be some echogenic material within the brachial artery distal to the arterial anastomosis. I wanted to get a better look at this, so over the Glidewire, I advanced a 4-South Korean angled diagnostic catheter into the brachial artery and a selective brachial arteriogram was performed. Indeed, there was nonocclusive echogenic material within the brachial artery distal to the arterial anastomosis. I then changed out the angled diagnostic catheter for the 0.035 Glidewire, which was advanced out the brachial artery and into the radial artery. I then performed passes with the AngioJet device. I then advanced the angled diagnostic catheter again and a selective brachial arteriogram was performed, which revealed clearing of most of the echogenic material within the brachial artery. The AngioJet device was removed. Over the Glidewire, I OPERATIVE REPORT [id number] AMY RODRIGUEZ advanced the 5-mm angioplasty balloon again balloon angioplastying the brachial artery at the site of the echogenic material as well as the arterial anastomosis. The angioplasty balloon was removed. I changed it out for the angled diagnostic catheter and this revealed that most of the echogenic material had been angioplastied. Doppler signal could be heard at the left wrist in the radial and ulnar arteries. There was an improvement in the arterial anastomotic stricture; however, there was still about 50% stricture at the anastomosis and I felt that further attempts at improving this may lead to an arterial embolism. There was an outflow within the fistula. I felt that this was the best result that we were going to obtain today. Both sheaths were removed. The entry sites were closed with pursestring 3-0 Vicryl sutures. Hemostasis was immediate. Utilizing the Doppler, I could hear arterial flow within the brachial artery proximal and distal to the arterial anastomosis. I could hear Doppler signal in the superficial palmar arch of the left hand as well as Doppler signal within the radial and ulnar arteries at the wrist. Doppler signal could also be heard within the cephalic vein and this Doppler signal had a long diastolic component. Sterile dressings were applied. The patient was then extubated and conveyed to post-anesthesia care unit where he was in stable condition. A pulse oximeter placed on a finger of the patient's left hand revealed a good waveform and O2 saturation of 97%. TRANSINT:[id number] Voice Confirmation ID: [id number] DOCUMENT ID: [id number] CC: Dr. Keegan Blanton, [place], TARYN BURGESS MD at 1055 CC: DIANE MCKAY MD, REN AGUIRRE MD and DR. KEEGAN [id number] DICTATION DATE: 11/23/181933 CONVEYOR SYSTEM DISPATCHER: 11/24/18317 DIS IN 11/24/18 [facility] [address] [place] [address]
== END 2018-11-24 10:45 | disposition home or self-care (01) | DRG 252 ==
LOC: D.SP 08:00 → D.RAD 10:00 → D.M2 14:50 → D.SP 14:51 → D.M2 11-24 10:45
PROVIDERS: General Practice; ADMIT Internal Medicine Nephrology
PROC: 057D3DZ Dilation of Right Cephalic Vein with Intraluminal Device, Percutaneous Approach (ICD-10-PCS; 2018-11-19)
PROC: 05HM33Z Insertion of Infusion Device into Right Internal Jugular Vein, Percutaneous Approach (ICD-10-PCS; 2018-11-19)
PROC: B5131ZA Fluoroscopy of Right Jugular Veins using Low Osmolar Contrast, Guidance (ICD-10-PCS; 2018-11-19)
PROC: 05CD3ZZ Extirpation of Matter from Right Cephalic Vein, Percutaneous Approach (ICD-10-PCS; principal; 2018-11-19 10:00)
PROC: 5A1D70Z Performance of Urinary Filtration, Intermittent, Less than 6 Hours Per Day (ICD-10-PCS; 2018-11-20)
PROC: 05CD3ZZ Extirpation of Matter from Right Cephalic Vein, Percutaneous Approach (ICD-10-PCS; 2018-11-23)
PROC: 057D3DZ Dilation of Right Cephalic Vein with Intraluminal Device, Percutaneous Approach (ICD-10-PCS; 2018-11-23)
PROC: 0JH63XZ Insertion of Tunneled Vascular Access Device into Chest Subcutaneous Tissue and Fascia, Percutaneous Approach (ICD-10-PCS; 2018-11-23)
PROC: 05HM33Z Insertion of Infusion Device into Right Internal Jugular Vein, Percutaneous Approach (ICD-10-PCS; 2018-11-23)
PROC: B5131ZA Fluoroscopy of Right Jugular Veins using Low Osmolar Contrast, Guidance (ICD-10-PCS; 2018-11-23)
DX: T82.868A Thrombosis due to vascular prosthetic devices, implants and grafts, initial encounter (principal); N18.6 End stage renal disease; I12.0 Hypertensive chronic kidney disease with stage 5 chronic kidney disease or end stage renal disease; Y83.8 Other surgical procedures as the cause of abnormal reaction of the patient, or of later complication, without mention of misadventure at the time of the procedure; E11.22 Type 2 diabetes mellitus with diabetic chronic kidney disease; Z99.2 Dependence on renal dialysis; T82.856A Stenosis of peripheral vascular stent, initial encounter

== ENCOUNTER 2019-01-12 10:23 | Inpatient (IN) | payer MEDICARE, BC ==
[~2019-01-12] VITALS: Ht 182.9 cm; Wt 94.5 kg
[~2019-01-12 10:23] MED LIST: COREG 3.1253.125 MG PO; DEPAKENE250 MG PO; FERRIC CITRATE210 MG PO; FLOMAX0.4 MG PO; HUMALOG 30100 UNITS/ SC; LANTUS SOLOSTAR SQ; PLAVIX75 MG PO; PROTONIX40 MG PO; PROZAC40 MG PO; ROPINIROLE HCL2 MG PO; SYNTHROID50 MCG PO; ZOCOR20 MG PO
[2019-01-12 10:42] LABS: BASOPHILS 0.2 % (0-2); EOSINOPHILS 0.4 % (0-7); HEMATOCRIT 36.9 % (42.0-54.0); HEMOGLOBIN 12.3 g/dL (13.5-17.5); IMMATURE GRANULOCYTES 0.7 % (0-5); LYMPHOCYTES 29.4 % (15-50); MCH 33.6 pg (26.0-34.0); MCHC 33.3 g/dL (31.0-37.0); MCV 100.8 fL (80.0-100.0); MEAN PLATELET VOLUME 9.3 fL (7.4-10.4); MONOCYTES 11.9 % (2-11); NEUTROPHILS 57.4 % (40-80); RBC 3.66 10x6/uL (4.20-6.10); RDW 14.4 % (11.5-14.5); WBC 5.5 10x3/uL (4.8-10.8)
[2019-01-12 10:44] LABS: PLATELET COUNT 124 10x3/uL (130-400)
[2019-01-12 10:53] LABS: ANION GAP 14.9 mmol/L (8-16); APTT 31.5 SECONDS (22.8-39.4); CALCIUM 8.5 mg/dL (8.5-10.1); CARBON DIOXIDE 26.6 mmol/L (21.0-32.0); INR 1.11 (0.85-1.17); POTASSIUM - SERUM 3.5 mmol/L (3.5-5.1); PROTIME 13.8 SECONDS (11.6-15.0)
[2019-01-12] MEDS ORDERED: FOLATE0.4 MG PO (11:28)
[2019-01-12] MEDS ORDERED: PHOSLO667 MG PO (11:28)
[2019-01-12] MEDS ORDERED: NORVASC10 MG PO (11:28)
[2019-01-12] MEDS ORDERED: EPOGEN3000 U/ML SC (11:30)
[2019-01-12 11:35] VITALS: BMI 28.1
[2019-01-12 20:30] VITALS: BP 160/63
[2019-01-13 00:30] VITALS: BP 126/72
[2019-01-13 02:14] VITALS: BP 160/63; Ht 182.9 cm; Wt 94.5 kg
[2019-01-13 05:29] VITALS: BP 130/69
[2019-01-13 06:08] LABS: BASOPHILS 0.1 % (0-2); EOSINOPHILS 0.1 % (0-7); HEMOGLOBIN 10.4 g/dL (13.5-17.5); IMMATURE GRANULOCYTES 0.4 % (0-5); LYMPHOCYTES 21.3 % (15-50); MCH 33.1 pg (26.0-34.0); MCHC 32.5 g/dL (31.0-37.0); MCV 101.9 fL (80.0-100.0); MEAN PLATELET VOLUME 9.7 fL (7.4-10.4); MONOCYTES 13.9 % (2-11); NEUTROPHILS 64.2 % (40-80); PLATELET COUNT 124 10x3/uL (130-400); RBC 3.14 10x6/uL (4.20-6.10); RDW 14.3 % (11.5-14.5)
[2019-01-13 06:33] LABS: ALBUMIN 2.6 g/dL (3.4-5.0); ALKALINE PHOSPHATASE 70 U/L (46-116); BILIRUBIN - TOTAL 0.37 mg/dL (0.2-1.3); CALC OSMOLALITY 289 mosm/kg (275-300); CALCIUM 7.5 mg/dL (8.5-10.1); CARBON DIOXIDE 23.8 mmol/L (21.0-32.0); CHLORIDE - SERUM 105 mmol/L (98-107); CREATININE - SERUM 6.2 mg/dL (0.6-1.3); GLUCOSE 125 mg/dL (74-106); MAGNESIUM - SERUM 1.7 mg/dL (1.8-2.4); PHOSPHOROUS 4.8 mg/dL (2.5-4.9); POTASSIUM - SERUM 3.4 mmol/L (3.5-5.1); PROTEIN - SERUM 5.5 g/dL (6.4-8.2); SODIUM 140 mmol/L (136-145); UREA NITROGEN 41 mg/dL (7-18); eGFR NON AFRICAN AMERICAN 9 mL/min (90-120)
[2019-01-13 06:45] LABS: ALT (SGPT) < 6 U/L (10-68)
[2019-01-13 06:46] LABS: WBC 8.1 10x3/uL (4.8-10.8)
[2019-01-13 07:53] VITALS: BP 123/64
--- NOTE | 2019-01-13 11:13 | OP ---
PATIENT NAME: AMY RODRIGUEZ MEDICAL RECORD: [id number] :47 LOCATION:D.M2 D.2105 ADMISSION DATE:01/12/19 SURGEON: SHAQ BURGESS MD DATE OF OPERATION: 01/12/2019 PREOPERATIVE DIAGNOSIS: End-stage renal disease without peripheral access for chronic hemodialysis. POSTOPERATIVE DIAGNOSIS: End-stage renal disease without peripheral access for chronic hemodialysis. PROCEDURE: Placement of left arm looped 6-mm PTFE arteriovenous graft fistula from the brachial artery to the basilic vein. SURGEON: Shaq Burgess MD LIBRARY SCIENCE PROFESSOR: None. BLOOD LOSS: 300 cc. ANESTHESIA: General. DRAINS: Times 1 (10-Kosovan round fully fluted closed suction drainage system). The risks, possible complications, and alternatives to procedure were explained to the patient. He elects to proceed. OPERATIVE COURSE: The patient was conveyed the operating room electively on 01/12/2019. General anesthesia was induced by the anesthesia staff. The left upper extremity was abducted at 90 degrees to the patient's trunk. The left upper extremity was sterilely prepped and draped. I interrogated the left upper extremity arterial and venous systems with the ultrasound. An axial incision was accomplished on the medial aspect of the arm. I dissected down to the basilic vein, which was encircled with vessel loops. I dissected down to the brachial artery, which was encircled with vessel loops. At no time during this operation was there any apparent nerve injury. Two counterincisions were accomplished in the lateral arm, one cephalad and one caudad. I tunneled a PTFE graft, which was 6-mm graft from one incision to the next to the third and then back to the original incision. There was no apparent kinking or twisting of the graft during the tunneling procedure. Intravenous heparin was given. A longitudinal arteriotomy was accomplished on the brachial artery. I then punched out some ovals in the artery with an aortic punch. A side-to-end opeuorqb-mt-[id number] anastomosis was then fashioned with a running 6-0 Prolene suture. I then bevelled the venous end of the graft. A longitudinal venotomy was accomplished. An end-to-side graft to venous anastomosis was then accomplished with a running 6-0 Prolene suture. I then released control on the graft. There was an excellent thrill within the graft. I could feel a left radial pulse at the wrist. Through the posterior flap of the main incision, a 10-Kosovan fully-fluted drain was brought out. The drain was sutured to skin with a 2-0 nylon. Fibrillar was added to the wound for additional hemostasis. The skin was approximated with OPERATIVE REPORT [id number] AMY ORDRIGUEZ interrupted 3-0 Vicryl for the deep dermis as well as a running intracuticular 3-0 Vicryl for the skin. The counter incisions were closed with interrupted intracuticular 3-0 Vicryls as well as a running 4-0 Vicryl Rapide for the skin. A sterile dressing was applied. The patient was then extubated and conveyed to the post-anesthesia care unit where he was in stable condition. TRANSINT:[id number] Voice Confirmation ID: [id number] DOCUMENT ID: [id number] SHAQ BURGESS MD at 1113 CC: REN AGUIRRE MD [id number] DICTATION DATE: 01/12/19 1737 EEG TECHNOLOGIST: 01/12/19 2250 ADM IN [place] [id number] [place] [id number]
--- NOTE | 2019-01-13 14:18 | MORECARE ---
CASE MANAGEMENT DISCHARGE SUMMARY PATIENT: AMY RODRIGUEZ RAY UNIT: [id number] ADM DATE: 01/12/19 AGE: 73 : 47 SEX: M ROOM/BED: D.2105 AUTHOR: ARIE NICOLE PHYSICIAN: REFERRING PHYSICIAN: REN AGUIRRE MD DATE OF SERVICE: 01/13/19 Discharge Plan Patient Name: AMY RODRIGUEZ [facility] [facility] 1945 Planned Disposition: Home Anticipated Discharge Date: 01/13/19 Discharge Date: Expected LOS: 1 Initial Reviewer: [email or web address] Initial Review Date: 01/13/2019 Generated: 01/13/19 3:18 pm Patient Name: AMY RODRIGUEZ Page [id number] at 1418 All edits/amendments must be made on the electronic document DICTATION DATE: 01/13/19 1417 HEALTHCARE ADVISORY SERVICES MANAGER: SULEMA 01/13/19 1417 RPT#: [id number] DC DATE: STATUS: ADM IN [facility] [address] [place] [address] END OF REPORT
--- NOTE | 2019-01-13 14:35 | MORECARE ---
CASE MANAGEMENT DISCHARGE SUMMARY PATIENT: AMY RODRIGUEZ RAY UNIT: [id number] ADM DATE: 01/12/19 AGE: 73 : 46 SEX: M ROOM/BED: D.2105 AUTHOR: ARIE NICOLE PHYSICIAN: REFERRING PHYSICIAN: REN AGUIRRE MD DATE OF SERVICE: 01/13/19 Discharge Plan Patient Name: AMY RODRIGUEZ Facility: [facility]:[place] : 1945 Planned Disposition: Home Anticipated Discharge Date: 01/13/19 Discharge Date: Expected LOS: 1 Initial Reviewer: [email or web address] Initial Review Date: 01/13/2019 Generated: 01/13/19 3:35 pm DCPIA - Discharge Planning Initial Assessment Updated by [email or web address]: Stef You on 01/13/19 2:32 pm * Is the patient Alert and Oriented? Yes * How many steps to enter\exit or inside your home? * PCP DR. AL, [place] * Pharmacy [facility] IN [place] * Preadmission Environment Home with Family * ADLs Independent * Equipment Bedside Commode Cane Walker * Other Equipment [facility] - MEDICAL EQUIPMENT PROVIDER PREFERENCE * List name and contact numbers for known caregivers / representatives who currently or will assist patient after discharge: JUD RODRIGUEZ, SPOUSE, * Verbal permission to speak to the caregivers and representatives has been obtained from the patient. Yes * Community resources currently utilized Other * Please name any agencies selected above. OUTPATIENT DIALYSIS, [facility] * Additional services required to return to the preadmission environment? No * Can the patient safely return to the preadmission environment? Yes * Has this patient been hospitalized within the prior 30 days at any hospital? No Last DP export: 01/13/19 1:18 p Patient Name: AMY RODRIGUEZ Page [id number] at 1435 All edits/amendments must be made on the electronic document DICTATION DATE: 01/13/19 1434 TUBE OPERATOR: SULEMA 01/13/19 1434 RPT#: [id number] DC DATE: STATUS: ADM [place] [address] [place] [address] END OF REPORT
--- NOTE | 2019-01-13 14:52 | MORECARE ---
CASE MANAGEMENT DISCHARGE SUMMARY PATIENT: AMY RODRIGUEZ UNIT: [id number] ADM DATE: 01/12/19 AGE: 73 : 46 SEX: M ROOM/BED: D.2105 AUTHOR: ARIE NICOLE PHYSICIAN: REFERRING PHYSICIAN: REN MARLOW MD DATE OF SERVICE: 01/13/19 Discharge Plan Patient Name: AMY RODRIGUEZ Facility: [facility]:[place] : 1945 Planned Disposition: Home Anticipated Discharge Date: 01/13/19 Discharge Date: Expected LOS: 1 Initial Reviewer: [email or web address] Initial Review Date: 01/13/2019 Generated: 01/13/19 3:51 pm Comments DCP- Discharge Planning Updated by [email or web address]: Stef You on 01/13/19 1:[address] Patient Name: AMY RODRIGUEZ Admission Status: Elective Accout number: [id number] Admission Date: 01-12-2019 : 1945 Admission Diagnosis:[facility] COMPL OF SURGICALLY CREATED ARTERIOVENOUS SHUNT, I Attending: Ren Marlow Current LOS: 1 Anticipated DC Date: 01-13-2019 Planned Disposition: Home Primary Insurance: MEDICARE A & B Discharge Planning Comments: CM MET WITH PT AND SPOUSE IN ROOM TO DISCUSS DISCHARGE PLANNING AND NEEDS. AMY RODRIGUEZ provided verbal consent to discuss current and ongoing needs with/in the presence of: SPOUSE, JUD, REPORTING SHE IS A REGISTERED NURSE. PT LIVING AT HOME INDEPENDENTLY WITH SPOUSE. PT HAS CANE, WALKER(RARELY USES) AND BEDSIDE COMMODE (OVER THE TOILET) FROM [facility]. PT HAS NO OUTSIDE SERVICES ASSISTING IN THE HOME. PT ATTENDS DIALYSIS IN [facility], [address]600[facility], SPOUSE DRIVES. CM DISCUSSED AVAILABILITY OF HOME HEALTH, REHAB SERVICES AND MEDICAL EQUIPMENT. PT'S SPOUSE REPORTS SHE WOULD LIKE HOME HEALTH FOR DRAIN CARE AND DRESSING CHANGES IF POSSIBLE, CHOICE LISTING PROVIDED, CHOICE SIGNED FOR ANY HOME HEALTH AGENCY. PT'S SPOUSE HERE TO TRANSPORT HOME AT DISCHARGE. CM CALLED [facility], ; RIVERA INFORMED CM THAT THEY DO NOT COVER [facility] AND THAT HOME HEALTH CANNOT DO ANYTHING TO AN ACTIVE DIALYSIS SITE. CM CALLED [facility] IN [place], , WAS ADVISED THEY WILL NOT DO ANY WOUND CARE ON ACTIVE DIALYSIS SITE. CM CALLED [facility], , SPOKE TO NURSE WHO ADVISED THEY WILL NOT DO ANY WOUND CARE ON ACTIVE DIALYSIS SITE. CM ADVISED MUFFLE WORKER NURSE WHO NOTIFIED RENAL WELDER PIPE MAKING MARGARITA. CM NOTIFIED PT'S SPOUSE WHO REPORTS BEING REGISTERED NURSE WHO INFORMED CM THAT SHE CAN DO THE WOUND CARE IF PROVIDED SUPPLIES. CM NOTIED MUFFLE WORKER NURSE. Lumber Tripper: Stef You DCPIA - Discharge Planning Initial Assessment Updated by [email or web address]: Stef You on 01/13/19 2:32 pm * Is the patient Alert and Oriented? Yes * How many steps to enter\exit or inside your home? * PCP DR. AL, [place] * Pharmacy [facility] IN [place] * Preadmission Environment Home with Family * ADLs Independent * Equipment Bedside Commode Cane Walker * Other Equipment [facility] - MEDICAL EQUIPMENT PROVIDER PREFERENCE * List name and contact numbers for known caregivers / representatives who currently or will assist patient after discharge: JUD RODRIGUEZ, SPOUSE, * Verbal permission to speak to the caregivers and representatives has been obtained from the patient. Yes * Community resources currently utilized Other * Please name any agencies selected above. OUTPATIENT DIALYSIS, [facility] * Additional services required to return to the preadmission environment? No * Can the patient safely return to the preadmission environment? Yes * Has this patient been hospitalized within the prior 30 days at any hospital? No Coverage Notice Reviewer: [email or web address] - Stef You Notice Issued Date-Time: 01/13/2019 11:55 Notice Type: Patient Choice Letter Notice Delivered To: Family Member Relationship to Patient: Spouse Bolt Sawyer Name: JUD RODRIGUEZ Delivery Method: HAND - Hand Delivered Elda Days: Prior Verbal Notification: Recipient Understood Notice: Yes Recipient Signature: Yes Med Rec Note Co-signed by Attending: Coverage Notice Comment: ANY HOME HEALTH Last DP export: 01/13/19 1:35 p Patient Name: AMY RODRIGUEZ Page [id number] at 0242 All edits/amendments must be made on the electronic document DICTATION DATE: 01/13/191450 FORMING ROLL OPERATOR HEAVY DUTY: SULEMA 01/13/19 145 RPT#: [id number] DC DATE: STATUS: ADM IN [facility] [address] [place] [address] END OF REPORT
[2019-01-13] MEDS ORDERED: HYDROCODON-ACE1 EAC7 PO (16:08)
== END 2019-01-13 18:33 | disposition home or self-care (01) | DRG 264 ==
LOC: D.M2 10:23 → D.OPS 10:23 → D.M2 17:25 → D.OPS 17:30 → D.M2 17:30
PROVIDERS: Anesthesiology; Surgery; ADMIT Internal Medicine Nephrology
PROC: 03180JF Bypass Left Brachial Artery to Lower Arm Vein with Synthetic Substitute, Open Approach (ICD-10-PCS; principal; 2019-01-12 13:00)
DX: T82.591A Other mechanical complication of surgically created arteriovenous shunt, initial encounter (principal); N18.6 End stage renal disease; I12.0 Hypertensive chronic kidney disease with stage 5 chronic kidney disease or end stage renal disease; Y83.8 Other surgical procedures as the cause of abnormal reaction of the patient, or of later complication, without mention of misadventure at the time of the procedure; E11.22 Type 2 diabetes mellitus with diabetic chronic kidney disease; Z99.2 Dependence on renal dialysis

== ENCOUNTER 2020-04-06 11:38 | Observation (INO) | payer MEDICARE, BC ==
[~2020-04-06 11:38] MED LIST changes: +EPOGEN3000 U/ML SC; +FOLATE0.4 MG PO; +HYDROCODON-ACE1 EAC7 PO; +NORVASC10 MG PO; +PHOSLO667 MG PO
[2020-04-06] MEDS ORDERED: TRESIBA FL100 UNIT/1 SC (11:56)
[2020-04-06] MEDS ORDERED: TUMS X-STR300 MG PO (11:58)
[2020-04-06] MEDS ORDERED: K-DUR20 MEQ PO (12:01)
--- NOTE | 2020-04-06 13:11 | NUR ---
PT STATES HAS CLOTTED OFF 3 TIMES IN PAST 9 DAYS. GOING EVERY 3-6 MONTHS TO [facility].
[2020-04-06 17:14] VITALS: Wt 99.5 kg
--- NOTE | 2020-04-06 19:30 | NUR ---
PT IN BED, AAO X 3, RESP EVEN AND UNLABORED. NO DISTRESS NOTED. CL IN REACH, SR UP X 2.
[2020-04-06 20:32] VITALS: BP 134/66
[2020-04-07] VITALS: BP 124/49
[2020-04-07 05:17] VITALS: BP 126/67
[2020-04-07 05:33] LABS: BASOPHILS 0.3 % (0-2); EOSINOPHILS 3.2 % (0-7); HEMATOCRIT 28.4 % (42.0-54.0); IMMATURE GRANULOCYTES 0.6 % (0-5); LYMPHOCYTES 34.1 % (15-50); MCH 32.7 pg (26.0-34.0); MCHC 31.7 g/dL (31.0-37.0); MCV 103.3 fL (80.0-100.0); MEAN PLATELET VOLUME 9.2 fL (7.4-10.4); MONOCYTES 10.5 % (2-11); NEUTROPHILS 51.3 % (40-80); RBC 2.75 10x6/uL (4.20-6.10); RDW 12.4 % (11.5-14.5); WBC 6.2 10x3/uL (4.8-10.8)
[2020-04-07 05:42] LABS: PLATELET COUNT 101 10x3/uL (130-400)
[2020-04-07 06:03] LABS: ANION GAP 14.9 mmol/L (8-16); CALCIUM 7.9 mg/dL (8.5-10.1); CARBON DIOXIDE 24.6 mmol/L (21.0-32.0); CREATININE - SERUM 8.3 mg/dL (0.6-1.3); PHOSPHOROUS 4.6 mg/dL (2.5-4.9); POTASSIUM - SERUM 4.5 mmol/L (3.5-5.1)
--- NOTE | 2020-04-07 07:00 | NUR ---
RECEIVED REPORT. ASSUMED CARE OF PATIENT. PATIENT RESTING IN BED WITH EYES OPEN. RESP EVEN AND UNLABORED. PATIENT AT BEDSIDE. CALL LIGHT WITHIN REACH. NO DISTRESS.
--- NOTE | 2020-04-07 07:52 | OP ---
PATIENT NAME: AMY RODRIGUEZ MEDICAL RECORD: [id number] :[birth year] LOCATION:D.M2 D.2104 ADMISSION DATE:04/06/20 SURGEON: SHAQ BURGESS MD DATE OF OPERATION: 04/06/2020 PREOPERATIVE DIAGNOSES: 1. End-stage renal disease without access for hemodialysis. 2. Clotted left upper extremity arteriovenous graft fistula. POSTOPERATIVE DIAGNOSES: 1. End-stage renal disease without access for hemodialysis. 2. Clotted left upper extremity arteriovenous graft fistula. PROCEDURE: 1. Placement of right internal jugular HemoSplit catheter (tunneled cuffed dual-lumen hemodialysis catheter) under fluoroscopic guidance. 2. Immediate surgeon interpretation of the fluoroscopic images. SURGEON: Shaq Burgess MD MORALE OFFICER: None. BLOOD LOSS: Minimal. ANESTHESIA: General. COMPLICATIONS: None. The risks, possible complications, and alternatives to the procedure were explained to the patient. He elects to proceed. The discussion specifically included, but was not limited to, bleeding requiring emergency reoperation, infection, as well as the probable need for additional dialysis access procedures in the future. No radiologist was present for this procedure. Static fluoroscopic images were obtained and are kept in the PACS system. The surgeon interpretation of the radiographic images is dictated within the body of this operative note. OPERATIVE COURSE: The patient was conveyed to the operating room electively on 04/06/2020. General anesthesia was induced by the main anesthesia staff. The right neck and right chest were sterilely prepped and draped. Under ultrasonographic guidance, I percutaneously accessed the right internal jugular vein in an antegrade fashion easily. This was visualized under fluoroscopy. An incision was accomplished around the wire. A counterincision was accomplished in the right anterior superior infraclavicular chest. I tunneled a 19-cm HemoSplit catheter from the chest incision to the neck incision. Over the wire, under fluoroscopic guidance, I dilated to a larger size. A dilator sheath was then advanced. The dilator and wire were removed. Through the sheath, the tips of HemoSplit catheter were advanced and then the Peel-Away sheath was then pulled away. I then pulled back on the hub of the HemoSplit catheter in order to seat the cuff in the subcutaneous tissues. An image over the mediastinum and the right lung revealed no radiographic evidence of complication. The longus HemoSplit catheter lumen tip appeared to be at the cavoatrial junction. The neck incision was closed with interrupted intracuticular 3-0 Vicryls. The OPERATIVE REPORT [id number] AMY RODRIGUEZ RAY flange of the HemoSplit catheter was sutured to the underlying skin with 2-0 nylons. Both lumens of HemoSplit catheter flushed easily and aspirated dark, nonpulsatile blood. I then topped off both lumens of the HemoSplit catheter with the appropriate amount of concentrated heparin. The patient was then extubated and conveyed to post-anesthesia care unit where he was in stable condition. TRANSINT:[id number] Voice Confirmation ID: [id number] DOCUMENT ID: [id number] SHAQ BURGESS MD at 0752 CC: DAVID SINGH [id number] DICTATION DATE: 04/06/20 172 BENCH INSPECTOR: 04/06/202116 ADM IN [facility] [address] [place] [address]
--- NOTE | 2020-04-07 08:48 | NUR ---
PATIENTS AT BEDSIDE AND DOES NOT WANT PATIENT TO HAVE THE LANTUS THIS AM BECAUSE HE NORMALLY TAKE TRESIBA AT HS AND SHE DOESN'T WANT HIM TO GET OFF OF HIS SCHEDULE AND THEY WILL BE DISCHARGED TO HOME TODAY AFTER DIALYSIS SO SHE IS TRYING TO KEEP HIS NORMAL MEDICATION SCHEDULE.
[2020-04-07 09:49] VITALS: BP 129/56
--- NOTE | 2020-04-07 11:47 | NUR ---
PATIENT TRANSPORTED TO DIALYSIS AT THIS TIME. NO DISTRESS.
--- NOTE | 2020-04-07 11:48 | NUR ---
FSBS 159. NO INSULIN PATIENT CAN NOT EAT IN DIALYSIS SUITE AND HAS CONTINUE TO DROP SINCE RECEIVING EARLY AM DOSE OF INSULIN.
[2020-04-07 13:50] VITALS: BP 158/82
--- NOTE | 2020-04-07 16:12 | NUR ---
PATIENT RETURN TO UNIT VIA BED FROM DIALYSIS AND IS PREPARING TO DISCHARGE TO HOME AT THIS TIME. NO DISTRESS.
--- NOTE | 2020-04-07 16:30 | NUR ---
20 GAUGE IV CATHETER REMOVED FROM RIGHT AC. CATHETER TIP INTACT. NO BLEEDING FROM SITE. 2X2 GAUZE APPLIED AND SECURED WITH BANDAID. PATIENT TOLERATED REMOVAL WELL.
--- NOTE | 2020-04-07 16:45 | NUR ---
PATIENT LEFT UNIT VIA WHEELCHAIR AT THIS TIME. PATIENT DISCHARGED TO HOME WITH ALL PERSONAL BELONGINGS WITH HIS SPOUSE. NO DISTRESS UPON DISCHARGE FROM UNIT.
== END 2020-04-07 17:00 | disposition home or self-care (01) ==
LOC: D.M2 11:38 → OBSVTIME 11:39 → D.M2 04-07 17:00
PROVIDERS: Internal Medicine; ADMIT Internal Medicine Nephrology; ATTEND Internal Medicine Nephrology
DX: T82.868A Thrombosis due to vascular prosthetic devices, implants and grafts, initial encounter (principal); E11.22 Type 2 diabetes mellitus with diabetic chronic kidney disease; I12.0 Hypertensive chronic kidney disease with stage 5 chronic kidney disease or end stage renal disease; N18.6 End stage renal disease; Z99.2 Dependence on renal dialysis; E83.39 Other disorders of phosphorus metabolism; K21.9 Gastro-esophageal reflux disease without esophagitis

== ENCOUNTER 2020-07-31 09:07 | Inpatient (IN) | payer MEDICARE, BC ==
[~2020-07-31] VITALS: Ht 182.9 cm; Wt 95.0 kg
[2020-07-31] VITALS (10 sets, daily range): BP systolic 124–157; BP diastolic 70–91; Ht 182.9 cm; Wt 95.0 kg
--- NOTE | ~2020-07-31 | OP ---
PATIENT NAME: AMY RODRIGUEZ MEDICAL RECORD: [id number] :47 LOCATION:D.MS [id number] ADMISSION DATE:07/31/20 SURGEON: TARYN BURGESS MD DATE OF OPERATION: 07/31/2020 PREOPERATIVE DIAGNOSIS: End-stage renal disease without chronic access for hemodialysis. POSTOPERATIVE DIAGNOSIS: End-stage renal disease without chronic access for hemodialysis. PROCEDURE: Creation of right brachiocephalic arteriovenous fistula for hemodialysis access. SURGEON: Taryn Burgess MD SHOTGUN SHELL ASSEMBLY MACHINE ADJUSTER: Shameka Colunga [facility]. BLOOD LOSS: 150 cc. ANESTHESIA: General. COMPLICATIONS: None. DESCRIPTION OF PROCEDURE: The patient was conveyed to the operating room electively on 07/31/2020. We had discussed the possible risks of the fistula placement including the possibility that the fistula might not mature. We also discussed the probability of bruising and swelling as this procedure is being done while the patient is still on Plavix. After general anesthesia, the patient was positioned supine and the right upper extremity was abducted at 90 degrees to the patient's trunk. The right upper extremity was sterilely prepped and draped. I interrogated the right upper extremity with the ultrasound. I was disappointed in the size of the cephalic vein at the cubital fossa. I also was disappointed at the size of the cephalic vein at the wrist. A transverse incision was accomplished in the cubital fossa. Sharp dissection was carried down to the level of the cephalic vein, which was encircled with vessel loops. I then ligated the antebrachial veins doubly and divided in between the ligatures. I dissected down to the brachial artery, which was encircled with vessel loops. Intravenous heparin was given. I was then able to dissect out the cephalic vein up into a portion of the arm underneath a skin flap. I then beveled the cephalic vein. Proximal and distal control on the brachial artery was obtained with the vessel loops. Arteriotomy was accomplished. I punched out a fairly large oval in the artery with an aortic punch. A side-to-end arterial to venous anastomosis was then accomplished with a running 6-0 Prolene. I then flushed out through the cephalic vein. There was a good thrill. On Doppler examination, there was monophasic signal in the brachial artery distal to the anastomosis. There was high volume signal within the cephalic vein. OPERATIVE REPORT [id number] AMY RODRIGUEZ A pulse could be felt at the right wrist. Ronald was added to the wound for additional hemostasis. The subdermis was approximated with interrupted 3-0 Vicryls. The skin was approximated with a running intracuticular 4-0 Vicryl. A sterile dressing was applied. The patient was then extubated and conveyed to post-anesthesia care unit where he was in stable condition. In the recovery room, he was already starting to develop a subcutaneous hematoma; however, flow within the cephalic vein persisted and was high volume signal by Doppler examination. TRANSINT:[id number] Voice Confirmation ID: [id number] DOCUMENT ID: [id number] TARYN BURGESS MD CC: [id number] DICTATION DATE: 08/01/20 1138 SITE MANAGER: 08/01/20 1408 ADM IN [place] [id number] [place] [id number]
[~2020-07-31 09:07] MED LIST changes: +K-DUR20 MEQ PO; +TRESIBA FL100 UNIT/1 SC; +TUMS X-STR300 MG PO
[2020-07-31 10:28] LABS: ANION GAP 12.6 mmol/L (8-16); CALCIUM 8.8 mg/dL (8.5-10.1); CARBON DIOXIDE 26.5 mmol/L (21.0-32.0); CREATININE - SERUM 7.9 mg/dL (0.6-1.3); POTASSIUM - SERUM 4.1 mmol/L (3.5-5.1)
[2020-07-31 10:37] LABS: BASOPHILS 0.2 % (0-2); EOSINOPHILS 0.6 % (0-7); HEMATOCRIT 36.2 % (42.0-54.0); HEMOGLOBIN 11.7 g/dL (13.5-17.5); IMMATURE GRANULOCYTES 1.1 % (0-5); LYMPHOCYTES 31.5 % (15-50); MCH 33.3 pg (26.0-34.0); MCHC 32.3 g/dL (31.0-37.0); MCV 103.1 fL (80.0-100.0); MEAN PLATELET VOLUME 9.4 fL (7.4-10.4); MONOCYTES 11.1 % (2-11); NEUTROPHILS 55.5 % (40-80); PLATELET COUNT 108 10x3/uL (130-400); RBC 3.51 10x6/uL (4.20-6.10); RDW 12.6 % (11.5-14.5); WBC 6.7 10x3/uL (4.8-10.8)
[2020-07-31 10:39] LABS: INR 1.01 (0.85-1.17); PROTIME 13.3 SECONDS (11.6-15.0)
[2020-07-31] MEDS ORDERED: DEPAKOTE250 MG PO ×2 (11:00→11:02)
[2020-07-31] MEDS ORDERED: FOSRENOL1000 MG PO (11:05)
[2020-07-31] MEDS ORDERED: HUMALOG 30100 UNITS/ SC (11:07)
[2020-07-31] MEDS ORDERED: OMEPRAZOLE20 M1 PO (11:11)
--- NOTE | 2020-07-31 19:30 | NUR ---
RECEIVED PT FROM PACU VIA STRETCHER. ALERT AND ORIENTED X4. [place]. AT BEDSIDE. DRSG NOTED TO RT FOREARM AV FISTULA. ABLE TO MOVE ARM AND FINGERS. DENIES PAIN AT THIS TIME. RESP EVEN AND NONLABORED. RUE IS ELEVATED ON PILLOW. STATES HE DOESNT PRODUCE MUCH URINE. V/S STABLE. HEMOSPLIT NOTED TO RT CHEST. NO DISTRESS. SR ELEVATED X2. CL IN REACH.
--- NOTE | 2020-07-31 20:30 | NUR ---
PT C/O ITCHING POSSIBLY RELATED TO MORPHINE IN PACU. NOTIFIED DR BURGESS. NEW ORDER NOTED FOR BENADRYL AND NORCO.
--- NOTE | 2020-07-31 21:27 | NUR ---
MEDICATED WITH BENADRYL FOR C/O ITCHING. CL IN REACH. NO RASH NOTED
[2020-08-01] VITALS: BP 146/80
--- NOTE | 2020-08-01 01:00 | NUR ---
LYING IN BED. REQUESTS ICE CREAM. AT BEDSIDE. V/S STABLE. DENIES PAIN. RUE ELEVATED ON PILLOW. NO DISTRESS. CL IN REACH.
[2020-08-01 04:00] VITALS: BP 136/77
--- NOTE | 2020-08-01 04:52 | NUR ---
MEDICATED WITH NORCO FOR C/O RT ARM PAIN. AT BEDSIDE RUE DRSG HAS SMALL AMOUNT OF BLOODY DRAINAGE COMING THROUGH. RUE DRSG REINFORCED WITH KERLIX AND SECURED WITH TAPE. RUE ELEVATED ON PILLOWS AT HEART LEVEL. CL IN REACH. NO DISTRESS.
--- NOTE | 2020-08-01 06:18 | NUR ---
RESTING QUIETLY WITH EYES CLOSED. NO DISTRESS. AT BEDSIDE. CL IN REACH.
--- NOTE | 2020-08-01 07:14 | NUR ---
JUD IN CHAIR. PT IN BED WITH RIGHT ARM ON PILLOW AT SIDE. REPORT RECEIVED. NO NEEDS AT THIS TIME. CONCERNS ABOUT STARTING PLAVIX BACK TODAY SINCE RIGHT UPPER ARM FISTULA HAS BEEN REENFORCED AND IS STILL BLEEDING. TOLD THEM DR WILL BE BACK BEFORE THEY DISCHARGE OR I WILL CALL THE DOCTOR BEFORE THEY LEAVE. CL IN REACH. TM
--- NOTE | 2020-08-01 07:58 | NUR ---
SPOKE WITH DAUGHTER VEDA BEST. HAD SECURITY CODE. ANSWERS GIVEN TO PT WELL BEING. DAUGHTER ALSO MENTIONED THAT PT LIVES WITH "HOSPICE HOME" AND ER STATED THAT PT HAD EAR WAX BUILD UP THAT NEEDS TO BE TAKEN CARE OF.
[2020-08-01 09:25] VITALS: BP 137/70
[2020-08-01] MEDS ORDERED: HYDROCODON-ACE1 EAC7 PO (09:49)
[2020-08-01 12:08] LABS: BASOPHILS 0.1 % (0-2); EOSINOPHILS 0.8 % (0-7); HEMATOCRIT 29.4 % (42.0-54.0); HEMOGLOBIN 9.4 g/dL (13.5-17.5); IMMATURE GRANULOCYTES 0.5 % (0-5); LYMPHOCYTES 19.1 % (15-50); MCH 33.1 pg (26.0-34.0); MCV 103.5 fL (80.0-100.0); MONOCYTES 17.8 % (2-11); NEUTROPHILS 61.7 % (40-80); PLATELET COUNT 95 10x3/uL (130-400); RBC 2.84 10x6/uL (4.20-6.10); RDW 12.4 % (11.5-14.5); WBC 7.6 10x3/uL (4.8-10.8)
[2020-08-01 12:20] LABS: ANION GAP 15.3 mmol/L (8-16); CALCIUM 7.9 mg/dL (8.5-10.1); CARBON DIOXIDE 23.1 mmol/L (21.0-32.0); CREATININE - SERUM 9.3 mg/dL (0.6-1.3); PHOSPHOROUS 5.8 mg/dL (2.5-4.9); POTASSIUM - SERUM 4.4 mmol/L (3.5-5.1)
--- NOTE | 2020-08-01 12:35 | NUR ---
PT IN DIALYSIS. DISCHARGE PAPERWORK WITH ME FOR WHEN HE RETURNS. JUD IN ROOM.
[2020-08-01 12:43] LABS: PLATELET ESTIMATE DECREASED
[2020-08-01 14:57] VITALS: BP 111/65
--- NOTE | 2020-08-01 15:17 | NUR ---
PT BACK FROM DIALYSIS. CO OF PAIN. TREATED PER EMAR. CO OF ITCHING. WILL TREAT WHEN ABLE. JUD IN ROOM. READY FOR DISCHARGE. DIAYLSIS CHANGED DRESSING ON HEMISPLIT. WCTM
--- NOTE | 2020-08-01 16:25 | NUR ---
DISCHARGE INSTRUCTIONS DONE. WHEELED TO FRONT ENTRANCE.
== END 2020-08-01 17:04 | disposition home or self-care (01) | DRG 907 ==
LOC: D.OPS 09:07 → D.MS 18:05 → D.OPS 22:35 → D.MS 22:36
PROVIDERS: Anesthesiology; Internal Medicine; ADMIT Surgery; ATTEND Surgery
PROC: 03170AF Bypass Right Brachial Artery to Lower Arm Vein with Autologous Arterial Tissue, Open Approach (ICD-10-PCS; principal; 2020-07-31 13:00)
PROC: 5A1D70Z Performance of Urinary Filtration, Intermittent, Less than 6 Hours Per Day (ICD-10-PCS; 2020-08-01)
DX: L76.32 Postprocedural hematoma of skin and subcutaneous tissue following other procedure (principal); N18.6 End stage renal disease; I12.0 Hypertensive chronic kidney disease with stage 5 chronic kidney disease or end stage renal disease; Y83.9 Surgical procedure, unspecified as the cause of abnormal reaction of the patient, or of later complication, without mention of misadventure at the time of the procedure; E11.22 Type 2 diabetes mellitus with diabetic chronic kidney disease; Z99.2 Dependence on renal dialysis; E83.39 Other disorders of phosphorus metabolism